=== PATIENT | female | born 1950 | race Two or more races ===

== ENCOUNTER 2025-03-25 14:34 | Emergency (ER) | payer OTHER ==
[~2025-03-25] VITALS: Ht 149.9 cm; Wt 50.3 kg
[2025-03-25] MEDS ORDERED: COZAAR50 MG PO (15:10)
[2025-03-25] MEDS ORDERED: ATORVASTATIN CA40 MG PO (15:11)
[2025-03-25] MEDS ORDERED: PEPCID AC20 MG (15:11)
[2025-03-25] MEDS ORDERED: PLAVIX75 MG (15:11)
[2025-03-25 18:48] LABS: BASO % 0.6 % (0.1-1.2); EOS # 0.06 (0.04-0.54); EOS % 0.6 % (0.7-7.0); LYMPH # 3.43 (1.18-3.74); LYMPH % 34.3 % (19.3-53.1); MEAN PLATELET VOLUME 9.20 fl (9.4-12.4); MONO # 0.98 (0.24-0.82); MONO % 9.8 % (4.7-12.5); NEUT # 5.45 (1.56-6.13); NEUT % 54.4 % (34.0-71.1); RED CELL DISTRIBUTION WIDTH 12.1 % (11.6-14.4)
[2025-03-25 18:59] LABS: URINE APPEARANCE Clear; URINE BILIRRUBIN Negative (NEGATIVE); URINE BLOOD Negative; URINE COLOR Yellow; URINE GLUCOSE Negative (NEGATIVE); URINE KETONE Negative (NEGATIVE); URINE LEUKOCYTE Small; URINE NITRATE Negative; URINE PROTEIN Negative (NEGATIVE); URINE UROBILINOGEN 0.2 E.U./dl
[2025-03-25 19:03] LABS: URINE BACTERIA 314.5 uL (0.0-1933); URINE EPITHELIAL CELLS 11.4 uL (0.0-38.8); URINE WBC 59.6 uL (0.0-23.2)
[2025-03-25 19:04] LABS: ERYTHROCYTE SEDIMENTATION RATE 23 mm/hr (0-30)
[2025-03-25 19:08] LABS: URINE CAST 0.00 uL (0.0-1.40); URINE RBC 0.7 uL (0.0-20.8)
[2025-03-25 19:14] LABS: INR 0.98
[2025-03-25 19:23] LABS: ALT/SGPT 30 U/L (12-78); AST/SGOT 22 U/L (15-37); BILIRUBIN TOTAL 0.62 mg/dL (0.3-1.2); BUN CREA RATIO 12 (7.0-25.0); CREATININE SERUM 0.89 mg/dL (0.55-1.02); GFR 61.67; GLOBULINA 3.8 G/DL (2.4-3.5); GLUCOSE FASTING 97 mg/dL (65-100); OSMOLALITY SERUM 271 MOSM/KG (275-295)
== END 2025-03-25 21:02 | disposition home or self-care (01) ==
LOC: ER 14:35
PROVIDERS: Physician Assistant Medical
DX: K64.5 Perianal venous thrombosis (principal); K64.4 Residual hemorrhoidal skin tags; I10 Essential (primary) hypertension; Z88.0 Allergy status to penicillin; Z88.2 Allergy status to sulfonamides; Z88.6 Allergy status to analgesic agent